=== PATIENT | male | born 1990 | race Caucasian/White ===

== ENCOUNTER → 2016-11-06 | Outpatient (CLI) | payer OTHER ==
[2016-11-06 08:40] LABS: MEAN CELL VOLUME 90.1 fL (80-100); MEAN CORPUSCULAR HEMOGLOBIN 30.9 pg (25-34); MEAN CORPUSCULAR HGB CONC 34.3 g/dl (32-36); PLATELET COUNT 237 K/uL (130-400); RED BLOOD COUNT 4.66 M/uL (4.7-6.1); WHITE BLOOD COUNT 7.24 K/uL (4.8-10.8)
[2016-11-06 09:09] LABS: BASO % 1.2 %; BASO ABS # 0.09 K/uL (0-0.2); COMPLETE YES; EOS % 2.5 %; IG% 5.9 %; LYMPH % 32.6 %; LYMPH ABS # 2.36 K/uL (1.2-3.4); MONO % 10.8 %
[2016-11-06 09:13] LABS: ALT/SGPT 30 U/L (12-78); BLOOD UREA NITROGEN 12 mg/dl (7-18); BUN/CREATININE RATIO 14.4 (10-20); CALCIUM 9.5 mg/dl (8.5-10.1); CARBON DIOXIDE 29 mmol/L (21-32); CHLORIDE 104 mmol/L (98-107); CREATININE 0.84 mg/dl (0.60-1.40); GLUCOSE 102 mg/dl (70-99); POTASSIUM 4.2 mmol/L (3.5-5.1); SODIUM 141 mmol/L (136-145)
[2016-11-06 09:16] LABS: ALB/GLOB RATIO 1.2 (0.9-2); ALKALINE PHOSPHATASE 72 U/L (45-117); AST/SGOT 17 U/L (15-37)
== END | disposition home or self-care (01) ==
LOC: C.LAB 07:30
PROVIDERS: ATTEND Psychiatry & Neurology Psychiatry
DX: F90.0 Attention-deficit hyperactivity disorder, predominantly inattentive type (principal); F42.9 Obsessive-compulsive disorder, unspecified; R19.7 Diarrhea, unspecified

== ENCOUNTER → 2017-03-25 | Outpatient (CLI) | payer OTHER ==
--- NOTE | 2017-03-28 07:25 | PAP/PSG TECHNICIAN REPORT ---
[facility] Dietary Aide Polysomnogram Report Study name: None Report date: 03/26/2017 Study date: 03/25/2017 Referring Physician: Franklin Pennington M.D. Name: LACY NATTY Willie Interpreting Physician: Franklin Pennington M.D. Date of : 1990 Dietary Aide: Nivia Bernard PSGT. Sex: Male Age: 27 StudyType: PSG Weight: 295 lbs Height: 27 years, Height 5' 5" BMI: 49.09 Medications: SEE LIST OF 15 MEDICATIONS Patient History 27 YR. 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 HE NAPS TWO HOURS IN THE EVENING. HE ALSO STATED THAT HE WAKES WITH HIS MASK DISCONNECTED DURING THE NIGHT. Parameters Monitored NPSG: E1-M2, E2-M1, Fp1-M2, Fp2-M1, F3-M2, F4-M2, F4-M1, C3-M2, C4-M2, C4-M1, O1-M2, O2-M2, O2-M1, T3-M2, T4-M1, P3-M2, P4-M1, CHIN1, CHIN2, HR, EKG, Legs, PFLOW, SNOR, FLOW, CFLOW, Tidal Volume, THOR, ABDO, SpO2, PLTH, CPRESS, ETCO2 Wave, ETCO2, pH Sleep Architecture Sleep Stages Time at Lights Off 10:45:01 PM STAGES Time (min.) TST (%) Time at Lights On 5:48:31 AM Wake 26.5 -- Total Recording Time (TRT) 425.00 min. N1 16.0 4 Total Sleep Period (TSP) 413.5 min. N2 239.0 60 Total Sleep Time (TST) 397.0min. N3 56.5 14 Awake Time 26.5 min. REM 85.5 22 Wake after Sleep Onset 16.5 min. Sleep Efficiency (SE) 94 % Sleep Onset Latency (SIDDHARTH) 10.0 min. Number of Stage 1 Shifts None Awakenings 4 Stage Changes 26 Number of REM periods 3 REM 85.5 22 REM Latency 127.0 min. NREM 311.5 78 Body Position Analysis Supine Right Left Side Prone Vertical Total Sleep Time (min.) 63.0 6.5 327.7 334.20 0.0 0.0 Total Sleep Time (%) 16% 2% 83% 84 0% N/A% Total Sleep Time REM (min.) 43.5 0.0 42.0 None 0.0 0.0 Total Sleep Time NREM (min.) 19.3 6.5 285.7 None 0.0 0.0 Intermittent Wake (min.) 0.2 9.9 16.4 None 0.0 0.0 Total Sleep Period (%) 15% None None None None None Arousals Myoclonus (PLM) * Events Count Index Events Count Index Spontaneous 35 5 Events Awake (PLMW) 0 0.0 Respiratory 10 1.5 Events Asleep w/ Arousal (PLMA) 4 0.6 PLM 4 1 Events Asleep w/o Arousal (PLMS) 90 13.6 Snoring 1 0 Total Asleep 94 14.2 Total 50 8 Total 94 13 Respiratory Analysis * CA OA MA CH H RERA Total Count 14 1 2 0 83 25 100 Index 2.1 0.2 0.3 0 12.5 4 18.7 Mean Duration 12.0 19.3 10.8 0.00 13.7 11.5 13.1 Longest Duration 15.9 19.3 12.7 0.00 12.7 25.3 27.5 Respiratory Event Summary Total Supine ~Supine Right Left Prone REM NREM Apneas Count 17 1 16 0 16 N/A 0 17 Index 2.6 1 3 0.0 2.9 N/A 0 3 Hypopneas (4% Desat) Count 83 14 69 0 69 N/A 4 79 Index 12.5 13.4 12 0.0 12.6 N/A 2.8 15.2 Apneas & All Hypopneas Count 100 15 85 0 85 N/A 4 96 Index 15.1 14 15 0 16 N/A 2.8 18.5 Respiratory Events (Vehicle Maintenance Supervisor+All Hyp+RERA) Count 100 15 109 0 109 N/A 4 96 Index 18.7 14 20 0.0 20.0 N/A 2.8 23.1 Respiratory Related Arousal Count 10 15 8 0 8 N/A 0 10 Index 1.5 2 1 0 1 N/A 0 2 Snoring Analysis Supine Right Left Prone REM NREM Total Snore duration 10.7 min Snores count 57 10 423 N/A 42 448 490 Snore mean duration 1.3 Sec Snores index 54 92 77 N/A 29.5 86.3 74.1 TST with snoring (%) 2.7% Desaturation Event Summary: Minimum %SpO2 Event Count Mean/Min/Max Duration(sec.) Desaturation Index % Time In Bed > 90 120 14.8 / 6.0 / 53.0 17.1 99.7 86 - 90 0 N/A 0.0 0.3 81 - 85 0 N/A 0.0 0.0 76 - 80 0 N/A 0.0 0.0 71 - 75 0 N/A 0.0 0.0 66 - 70 0 N/A 0.0 0.0 61 - 65 0 N/A 0.0 0.0 56 - 60 0 N/A 0.0 0.0 51 - 55 0 N/A 0.0 0.0 < 50 0 N/A 0.0 0.0 Total REM NREM Awake <50% 0.0 min. 0.0 min. 0.0 min. 0.0 min. 51 - 60% 0.0 min. 0.0 min. 0.0 min. 0.0 min. 61 - 70% 0.0 min. 0.0 min. 0.0 min. 0.0 min. 71 - 80% 0.0 min. 0.0 min. 0.0 min. 0.0 min. 81 - 90% 1.2 min. 0.3 min. 0.7 min. 0.2 min. 91 - 100% 422.2 min. 85.2 min. 310.7 min. 26.3 min. Average 95 95 95 95 Minimum SpO2 90 90 90 90 Desaturation Event Index 17.0 16.8 18.7 0.0 # Desat. Events below 89% N/A N/A N/A N/A Time(%) with Saturation below 89% 0.0 0.0 0.0 0.0 Time(min.) with Saturation below 89% 0.0 0.0 0.0 0.0 Heart Rate Analysis End Tidal CO2 Analysis Min (bpm) Max (bpm) Average (bpm) TSP (mins) % of TSP Awake 63 100 77 Above 55 mmHg 0.0 0.0 NREM 54 92 68 50-55 mmHg 0.0 0.0 REM 52 92 65 45-50 mmHg 397.0 100.0 Overall 52 92 67 40-45 mmHg 0.0 0.0 35-40 mmHg 0.0 0.0 30-35 mmHg 0.0 0.0 Average ETCO2 0.0 Supplemental O2 Values Minimum O2 level: None Value Start Time End Time Dietary Aide Comments PAP Study: MR. Briscoe slept in the right, left, and supine positions. No cardiac arrhythmia or PLM's noted. No bruxism noted. CPAP was initiated at +4 CMH2O and up-titrated to an optimal level of +14 CMH2O, Bi-Level Study started after patient started to have mixed and centrals. slept in the right, left, and supine positions. No cardiac arrhythmia or PLM's noted. No bruxism noted. PAP initiated at an IPAP of +4 CMH2O and an EPAP of +8 CMH2O up-titrated to an optimal level of: IPAP +5 CMH2O, EPAP + 11 CMH20 with a rate of 7 BPM, which nearly eliminated all respiratory events and snoring. A F[employer]P Simplus, was used during titration. stated, I did sleep as well as I do when I am in my own bed. The final report will be interpreted and signed by a sleep physician. The completed physician report will then be placed in the patient medical record. Therapy Event: Therapy (cm H20) 4 6 8 10 12 13 Total Time at Pressure (min.) 40.7 11.0 7.5 13.9 81.6 142.5 TST at Pressure (min.) 15.7 9.5 7.5 13.9 81.6 142.5 # Periods 1 1 1 1 1 1 Sleep Onset (min.) 10.0 0.0 0.0 0.0 0.0 0.0 REM Onset (min.) N/A N/A N/A N/A 63.9 82.3 Sleep Efficiency % 38 86 100 100 100 100 Wakefulness (%) 61.5 13.6 0.0 0.0 0.0 0.0 Wakefulness (min.) 25.0 1.5 0.0 0.0 0.0 0.0 NREM 1 (%) 36.1 12.0 0.0 0.0 0.0 0.0 NREM 1 (min.) 14.7 1.3 0.0 0.0 0.0 0.0 NREM 2 (%) 2.5 74.4 100.0 100.0 27.1 75.8 NREM 2 (min.) 1.0 8.2 7.5 13.9 22.1 108.0 NREM 3 (%) 0.0 0.0 0.0 0.0 55.1 4.9 NREM 3 (min.) 0.0 0.0 0.0 0.0 45.0 7.0 REM (%) 0.0 0.0 0.0 0.0 17.8 19.3 REM (min.) 0.0 0.0 0.0 0.0 14.5 27.5 # Arousals 9 3 2 0 10 7 Arousal Index 34.5 18.9 16.0 0.0 7.4 2.9 # Snore 22 19 29 220 41 19 Snore Index 84.2 119.4 232.1 950.1 30.1 8.0 AHI 11.5 81.7 96.0 4.3 2.2 6.7 AHI Supine N/A N/A N/A N/A N/A N/A AHI Non-Supine 11.5 81.7 96.0 4.3 2.2 6.7 NREM AHI 11.5 81.7 96.0 4.3 0.9 7.3 REM AHI N/A N/A N/A N/A 8.3 4.4 RDI 26.8 81.7 96.0 17.3 3.7 11.8 # Obstructive 0 0 0 0 0 0 # Central Ap 0 3 2 1 0 3 # Mixed 0 1 1 0 0 0 # Hypopneas 3 9 9 0 3 13 RERAS 5 0 0 3 2 12 Total Respiratory Events 7 13 12 4 5 28 Time Below SpO2 89.00% (min.) 0.0 0.0 0.0 0.0 0.0 0.0 Mean NREM SpO2 (%) 94 95 94 93 94 95 Mean REM SpO2 (%) N/A N/A N/A N/A 95 95 Mean Sleep SpO2 (%) 94 95 94 93 95 95 Min NREM SpO2 (%) 91 90 91 90 91 92 Min REM SpO2 (%) N/A N/A N/A N/A 91 92 Position Supine (min.) 0.0 0.0 0.0 0.0 0.0 0.0 Position Non-supine (min.) 15.7 9.5 7.5 13.9 81.6 142.5 LM Index Sleep 61.3 6.3 32.0 0.0 12.5 7.2 LM Index NREM 61.3 6.3 32.0 0.0 5.4 5.7 LM Index REM N/A N/A N/A N/A 45.5 13.1 Mean Heart Rate (bpm) 75 70 70 72 71 65 Min Heart Rate (bpm) 60 57 57 57 59 54 Therapy (cm H20) 14 8/4 9/4 10/4 11/5 Total Time at Pressure (min.) 10.7 15.4 23.5 12.8 63.8 TST at Pressure (min.) 10.7 15.4 23.5 12.8 63.8 # Periods 1 1 1 1 1 Sleep Onset (min.) 0.0 0.0 0.0 0.0 0.0 REM Onset (min.) N/A N/A N/A N/A 14.8 Sleep Efficiency % 100 100 100 100 100 Wakefulness (%) 0.0 0.0 0.0 0.0 0.0 Wakefulness (min.) 0.0 0.0 0.0 0.0 0.0 NREM 1 (%) 0.0 0.0 0.0 0.0 0.0 NREM 1 (min.) 0.0 0.0 0.0 0.0 0.0 NREM 2 (%) 58.1 100.0 100.0 100.0 31.8 NREM 2 (min.) 6.2 15.4 23.5 12.8 20.3 NREM 3 (%) 41.9 0.0 0.0 0.0 0.0 NREM 3 (min.) 4.5 0.0 0.0 0.0 0.0 REM (%) 0.0 0.0 0.0 0.0 68.2 REM (min.) 0.0 0.0 0.0 0.0 43.5 # Arousals 0 1 4 4 10 Arousal Index 0.0 3.9 10.2 18.7 9.4 # Snore 2 33 22 25 58 Snore Index 11.2 128.7 56.2 117.1 54.5 AHI 44.7 15.6 30.7 60.9 14.1 AHI Supine N/A N/A N/A N/A 14.3 AHI Non-Supine 44.7 15.6 30.7 60.9 0.0 NREM AHI 44.7 15.6 30.7 60.9 44.3 REM AHI N/A N/A N/A N/A 0.0 RDI 44.7 27.3 30.7 60.9 14.1 # Obstructive 0 0 0 1 0 # Central Ap 3 0 0 1 1 # Mixed 0 0 0 0 0 # Hypopneas 5 4 12 11 14 RERAS 0 3 0 0 0 Total Respiratory Events 8 7 12 13 15 Time Below SpO2 89.00% (min.) 0.0 0.0 0.0 0.0 0.0 Mean NREM SpO2 (%) 95 94 94 94 94 Mean REM SpO2 (%) N/A N/A N/A N/A 94 Mean Sleep SpO2 (%) 95 94 94 94 94 Min NREM SpO2 (%) 92 92 91 90 90 Min REM SpO2 (%) N/A N/A N/A N/A 90 Position Supine (min.) 0.0 0.0 0.0 0.0 62.8 Position Non-supine (min.) 10.7 15.4 23.5 12.8 1.0 LM Index Sleep 5.6 23.4 20.4 23.4 17.9 LM Index NREM 5.6 23.4 20.4 23.4 26.6 LM Index REM N/A N/A N/A N/A 13.8 Mean Heart Rate (bpm) 64 66 66 65 65 Min Heart Rate (bpm) 56 56 55 54 52
--- NOTE | 2017-04-04 12:53 | POLYSOMNOGRAPH REPORT ---
CLINICAL DATA: A 27-year-old male with BMI of 49 referred by Vincent Davis for a CPAP titration study. He has severe sleep apnea and was followed by Dr. Hernandez. He is on CPAP of 14 cm of water pressure, but still has fatigue and naps in the evening. He awakens with his mask disconnected during the night. He does live in a detention and the belt sander stone was in the room during his study. SLEEP ARCHITECTURE: Total recording time was 425 minutes. Total sleep period was 413.5 minutes. Total sleep time was 397 minutes divided between 311.5 minutes of non-REM sleep and 85.5 minutes of REM sleep. Sleep onset latency was 10 minutes. REM latency was 127 minutes. Sleep efficiency was 94%. Wake after sleep onset was 16.5 minutes. Sleep consisted of stage N1 at 4%, stage N2 at 68%, stage N3 at 14%, and REM 22%. AROUSAL DATA: 50 arousals were recorded for an index of 8 per hour. PERIODIC LIMB MOVEMENTS DATA: 94 limb movements during sleep were noted for an index of 14.2 per hour. RESPIRATORY DATA: AHI was 15.1. There were 14 central, 1 obstructive, and 2 mixed apneic episodes. The longest apneic episode was 19.3 seconds. There were 82 hypopneic episodes. The mean duration of hypopnea was 13.7 seconds. OXIMETRY DATA: No hypoxemia was seen. Oxygen asha was 90%. Mean saturation was 95%. EKG: Heart rates ranged from 52 to 92 beats per minute. No arrhythmias were noted. TILLER WORKER'S COMMENTS AND TREATMENT SUMMARY: The patient slept in the right, left, and supine positions. He used a [employer] Simplus mask. He was initially placed on CPAP and was titrated up to 14 cm of water pressure, but began to have central apneic episodes consistent with complex sleep apnea. At that point, he was switched to BIPAP and was titrated to a final pressure setting of BiPAP 11/5 with a backup rate of 7 breaths per minute. At that level, he had an AHI of 14.1. IMPRESSION: Severe sleep apnea/hypopnea improved on BiPAP 11/5 with a backup rate of 7 breaths per minute. RECOMMENDATIONS: The patient should be converted to BIPAP at the above noted pressure settings and should be seen back in followup within 90 days to document efficacy and compliance. [facility]
== END | disposition home or self-care (01) ==
LOC: C.NEUR 21:00
PROVIDERS: ATTEND Physician Assistant
DX: G47.33 Obstructive sleep apnea (adult) (pediatric) (principal)

== ENCOUNTER → 2017-11-28 | Outpatient (CLI) | payer OTHER ==
--- NOTE | 2017-11-28 19:00 | DIAGNOSTIC IMAGING REPORT ---
LEFT FOOT 3 VIEWS CLINICAL HISTORY: Left foot pain. FINDINGS: 3 views of the left foot are obtained. No prior studies are available for comparison at the time of dictation. The skeletal structures are well mineralized. No fracture is seen. The joint spaces of the foot are well-maintained. Soft tissue edema is present along the dorsal surface of the foot. IMPRESSION: Soft tissue swelling with no radiographic evidence of left foot fracture. Electronically signed by: Shoaib Ferro M.D. 11/28/2017 6:58 PM Dictated Date/Time: 11/28/2017 6:57 PM
== END | disposition home or self-care (01) ==
LOC: C.RAD 18:24
PROVIDERS: ATTEND Internal Medicine
DX: M79.672 Pain in left foot (principal); M79.89 Other specified soft tissue disorders